=== PATIENT | female | born 1990 | race Caucasian/White ===

== ENCOUNTER 2024-10-12 13:27 | Emergency (ER) | payer OTHER, SELFPAY ==
[2024-10-12 13:28] VITALS: BP 162/110
[2024-10-12 13:58] LABS: % Basophils 0.4 % (0-2); % Eosinophils 0.4 % (0-6); % Immature Granulocytes 0.2 % (0-0.5); Absolute Lymphocytes 2.5 10^3/uL (1.2-3.4); Absolute Monocytes 0.4 10^3/uL (0.1-0.6); Absolute Neutrophils 6.4 10^3/uL (1.4-6.5); Hematocrit 38.9 % (37.0-47.0); Hemoglobin 13.1 g/dL (12.0-16.0); Mean Corp Hgb Conc. 33.7 g/dL (33.0-37.0); Mean Corpuscular Hgb 27.4 pg (27.0-31.0); Mean Corpuscular Volume 81.4 fL (81.0-99.0); Nucleated Red Blood Cells % 0 %; Platelet Count 434 10^3/uL (130-400); Red Blood Cell Count 4.78 10^6/uL (4.20-5.40); Red Cell Dist. Width 14.9 % (11.5-14.5); White Blood Cell Count 9.3 10^3/uL (4.8-10.8)
[2024-10-12 14:19] LABS: ALT (SGPT) 13 U/L (0-35); AST (SGOT) 17 U/L (14-36); Albumin 4.9 g/dl (3.5-5.0); Alkaline Phosphatase 75 U/L (38-126); Blood Urea Nitrogen 14 mg/dl (7-17); Calcium 9.8 mg/dl (8.4-10.2); Carbon Dioxide 18 mmol/L (22-30); Chloride 105 mmol/L (98-107); Glucose 99 mg/dl (70-99); Potassium 3.8 mmol/L (3.5-5.1); Sodium 134 mmol/L (135-145); Total Bilirubin 0.6 mg/dl (0.2-1.3); Total Protein 7.7 g/dl (6.3-8.2); eGFR > 60.00
[2024-10-12 14:30] LABS: Troponin I < 0.012 ng/ml
[2024-10-12 16:02] VITALS: BP 170/116
--- NOTE | 2024-10-12 16:08 | ED.GENMED ---
History of Present Illness
<Yady Mcconnell PA-C - Last Filed: 10/12/24 19:13>
General
Chief Complaint: Blood Pressure Problem
Source: patient
Exam Limitations: none
Time Seen by Provider: 10/12/24 16:05
Nursing documentation reviewed up to this point in time: agreed with
History of Present Illness
History of Present Illness:
34-year-old female patient with a past medical history of IBS, hypertension, eczema, presents emergency department with concerns of high blood pressure and rushing sensation in her neck as well as transient temporal headache bilaterally. Patient
states that this started yesterday and progressed into today. Patient has a past medical history of preeclampsia and states that this is exactly how she felt when her blood pressure was elevated when she had preeclampsia. She is currently not
. She is currently not in the phase. Patient reports that the symptoms caused her to check her blood pressure and she has her blood pressure was systolically in the 170s. During her patient was on labetalol but has
been off of any blood pressure medication for multiple months now. Patient denies any head or neck trauma. She denies any visual loss. She denies any chest pain shortness of breath, any redness or swelling in her lower extremities.
Past History
<Yady Mcconnell PA-C - Last Filed: 10/12/24 19:13>
Past History
ED Past Medical History: Other (Gout), Other (Cellulitis 2014) and Other (Factor V deficiency)
ED Past Surgical History: Other (Hernia surgery)
Social History
Tobacco: Non-smoker
Alcohol: None
Personal:
Living: with family
Employment: Employed
Family History
Family History: Other (DVT)
Review of Systems
<Yady Mcconnell PA-C - Last Filed: 10/12/24 19:13>
Review of Systems
All Other Systems: ROS reviewed and negative except as documented in HPI and ROS
Phy Exam
<Yady Mcconnell PA-C - Last Filed: 10/12/24 19:13>
Physical Exam
Physical Exam:
General: Patient is well appearing and in no acute distress; non-toxic
Skin: Warm and dry, no rashes or lesions
Head: Normocephalic, atraumatic
Eyes: Sclera non-icteric. EOMs intact.
Neck: No anterior neck tenderness to palpation
Cardiac: Regular rate and rhythm, no murmurs
Peripheral Vascular: No lower extremity swelling or edema
Pulm: Normal respiratory effort, no wheezes, rales, or rhonchi
Musculoskeletal: No cervical spinal tenderness to palpation
Neuro: CN II-XII intact, no focal neurologic deficits.
Psychiatric: Appropriate mood and affect.
Course
<Yady Mcconnell PA-C - Last Filed: 10/12/24 19:13>
Orders/Labs/Results
Orders:
Orders
10/12/24 13:31
Electrocardiogram (*1) Urgent
Reason for Study: Hypertension, Benign
EKG- Treatment ONCE
10/12/24 13:33
Complete Blood Count/With Diff Urgent
Comprehensive Metabolic Panel Urgent
Troponin I Urgent
10/12/24 16:46
Losartan [Cozaar] 50 mg PO NOW STA
Abnormal Lab Results
10/12/24
13:33
RDW 14.9 H %
(11.5-14.5)
Plt Count 434 H 10^3/uL
(130-400)
Sodium 134 L mmol/L
(135-145)
Carbon Dioxide 18 L mmol/L
(22-30)
10/12/24 13:33
10/12/24 13:33
Vital Signs
Initial and Last Documented VS:
Initial Vital Signs
Temp Pulse Resp BP Pulse Ox
99.1 F 106 18 162/110 99
10/12/24 13:28 10/12/24 13:28 10/12/24 13:28 10/12/24 13:28 10/12/24 13:28
Last Documented Vital Signs
Temp Pulse Resp BP Pulse Ox
99.1 F 105 18 144/98 99
10/12/24 13:28 10/12/24 16:02 10/12/24 16:02 10/12/24 17:16 10/12/24 16:02
<Brock Pike, DO - Last Filed: 10/12/24 16:48>
Orders/Labs/Results
Orders:
Orders
10/12/24 13:31
Electrocardiogram (*1) Urgent
Reason for Study: Hypertension, Benign
EKG- Treatment ONCE
10/12/24 13:33
Complete Blood Count/With Diff Urgent
Comprehensive Metabolic Panel Urgent
Troponin I Urgent
10/12/24 16:46
Losartan [Cozaar] 50 mg PO NOW STA
Abnormal Lab Results
10/12/24
13:33
RDW 14.9 H %
(11.5-14.5)
Plt Count 434 H 10^3/uL
(130-400)
Sodium 134 L mmol/L
(135-145)
Carbon Dioxide 18 L mmol/L
(22-30)
10/12/24 13:33
10/12/24 13:33
Vital Signs
Initial and Last Documented VS:
Initial Vital Signs
Temp Pulse Resp BP Pulse Ox
99.1 F 106 18 162/110 99
10/12/24 13:28 10/12/24 13:28 10/12/24 13:28 10/12/24 13:28 10/12/24 13:28
Last Documented Vital Signs
Temp Pulse Resp BP Pulse Ox
99.1 F 105 18 144/98 99
10/12/24 13:28 10/12/24 16:02 10/12/24 16:02 10/12/24 17:16 10/12/24 16:02
<Yady Mcconnell PA-C - Last Filed: 10/12/24 19:13>
MDM/Problems Addressed
Differential Diagnosis Includes:
Differentials include essential hypertension, tension headache, migraine headache
MDM/Problems Addressed:
34-year-old female with past medical history of anxiety, eczema, hypertension, IBS, preeclampsia presents emergency department today with concerns of hypertension. She she states that she feels exactly how she felt when she had preeclampsia in her
. she denies any head or neck trauma on physical exam patient is well-appearing in no acute distress she has no focal neurologic deficits. Because she has a benign exam and her symptoms are how she felt in the past when she had high
blood pressure, do not feel that imaging of the head or neck is necessary at this time. CBC and CMP unremarkable troponin undetectable, EKG shows normal sinus rhythm with sinus arrhythmia but no concerning ischemic changes. Did give patient a dose
of losartan here, patient still notes a rushing sensation but felt like this improved her symptoms significantly and states that she feels much better than at arrival. Patient stable for discharge. Patient is a follow-up with her doctor in a few
days and a month supply of losartan has been sent to her pharmacy
<Yady Mcconnell PA-C - Last Filed: 10/12/24 19:13>
*Pulse Oximetry
Patient hypoxic: no
*[employer] Interpretation
Rate: normal
Interpretation: normal
Heart Rate: 80
Rhythm: sinus
*Critical Care Note
Total Time (30-74mins, 75-104mins- exclusive of procedures): Not Applicable
ED Attending Note
<Yady Mcconnell PA-C - Last Filed: 10/12/24 19:13>
-
Portions of this chart may have been created with voice recognition software.� Occasional wrong word or��sound alike� substitutions may have occurred due to the inherent limitations of voice recognition software.
<Brock Pike DO - Last Filed: 10/12/24 16:48>
ED Attending Note
Patient seen and examined by attending physician: Yes
I performed the substantive portion of visit, reviewed & personally made and approve the management plan that is documented in note by myself or GLORIA.: Yes
ED Attending Note:
I evaluated the patient bedside. The patient is well-appearing. However, she is hypertensive with systolics in the 160s to 170s range with markedly elevated diastolics as well. Initial heart rate elevated however on my assessment at 4:45 PM, her
heart rate was 80. Labs relatively unremarkable. Will start losartan.
Discharge Plan
Departure
Patient Disposition: Home (Routine Discharge)
Date of Disposition: 10/12/24
Time of Disposition: 17:37
Patient with high blood pressure during this ER visit?: Yes
Condition: Good
Discharge Problem:
Essential hypertension
Instructions: High Blood Pressure (DC), BLOOD PRESSURE
Prescriptions:
New
losartan 50 mg tablet
50 mg PO DAILY 30 Days Qty: 30 0RF
No Action
ibuprofen 600 MG tablet
600 mg PO Q6HPRN PRN (Reason: pain) Qty: 0 0RF
amoxicillin-pot clavulanate 1 TABLET tablet
1 tab PO Q12 Qty: 14 0RF
Referrals:
Enedina Reed DO [Family Provider] -
Activity Restrictions/Additional Instructions:
Losartan has been sent to your pharmacy. Please take one tablet once daily. Please follow up with your OBGYN as scheduled in the coming days.
PLEASE RETURN TO THE ER SHOULD YOU DEVELOP AN ACUTE WORSENING OF YOUR SYMPTOMS, CHEST PAIN, DIZZINESS, LIGHTHEADEDNESS, LOSS OF VISION, SYNCOPAL EPISODES, OR ANY OTHER SIGNS OR SYMPTOMS CONCERNING TO YOU.
Interventions
Interventions:
*Risk Screen - Suicide Last Done: 10/12/24 13:28
*General Assessment Last Done: 10/12/24 13:28
*Neglect/Abuse Screening Last Done: 10/12/24 13:28
ED- Fall Risk Assessment Last Done: 10/12/24 18:08
*ED COVID-19 Vaccine History Last Done: 10/12/24 13:28
*Nursing Disposition Last Done: 10/12/24 18:08
ED- Cardiac Assessment Last Done: 10/12/24 17:16
ED- Neurological Assessment Last Done: 10/12/24 17:16
ED- Pulmonary Assessment Last Done: 10/12/24 17:16
Discharge Date and Time
Discharge Date/Time: 10/12/24 18:09
Print Language: [id number]
[2024-10-12] MEDS: COZAAR 50 MG PO (16:56)
[2024-10-12 17:16] VITALS: BP 144/98
== END 2024-10-12 18:09 | disposition home or self-care (01) ==
LOC: EMR 13:27
PROVIDERS: Student in an Organized Health Care Education/Training Program; EMERGENCY PHYSICIAN Emergency Medicine; FAMILY PHYSICIAN Family Medicine
DX: I10 Essential (primary) hypertension (principal); D68.2 Hereditary deficiency of other clotting factors; I49.8 Other specified cardiac arrhythmias; Z87.59 Personal history of other complications of pregnancy, childbirth and the puerperium
CPT/HCPCS: 99284; 80053; 84484; 85025; 93005